=== PATIENT | female | born 2000 | race Caucasian/White ===

== ENCOUNTER 2025-06-12 15:07 | Outpatient (OUT) | payer MEDICAID, SELFPAY ==
--- OUTSIDE RECORDS SUMMARY | 2024-09-11 11:00 | XMS_ITS ---
Author Organization [facility] Address [address] [place] [address] Care Team Providers Care Nurse Manager Name Role Phone Amada Tomas Primary Care Provider Alla Jordan Unavailable [phone] REASON FOR VISIT NEW PT DENTAL EXAM Encounters Encounter Location Date Provider Diagnosis [address] [place] [address] 09/11/2024 Alla Jordan Plan Of Treatment No Information Progress Notes * RICA ARAUJO MDOB:2000 (24 yo F)Acc No.[id number]:09/11/2024 Patient: Belen GARZARICA JOHNSON Provider: Janey Jordan DDS :2000 A ge:23 Y S ex:Female Date:09/11/2024 Address:[address] [place] [address], [id number] Pcp:Amada Tomas Subjective: * Chief Complaints: * N EW PT DENTAL EXAM * Electronic signature of Rinku Jordan DDS on 06/12/2025 at 03:25 PM EDT Sign off status: Pending * Provider: Janey Jordan DDS Date: 0 09/11/2024 Generated for Jumana carrillo/Usama/eTransmitting on: 1 03:25 PM EDT
--- NOTE | 2025-06-12 15:16 | US_ITS ---
[facility] [place] [id number] Patient Name: RICA ARAUJO MRN: [id number] date: 2000 Sex: F Assigned Patient Location: Current Patient Location: Accession/Order Number: [id number] Exam Date: 06/12/2025 15:18 Report Date: 06/13/2025 00:25 At the request of: RENE DUGAN DO Procedure: US OB transvaginal US OB transvaginal 06/12/2025 3:52 PM SIGNS AND SYMPTOMS: ^Bleeding In Early , Positive Urine COMPARISON: None. TECHNIQUE: Limited pelvic ultrasound using transvesical sonography. FINDINGS: An early intrauterine is identified. The visualized yolk sac measures 0.17 cm. The visualized pole has an estimated gestational age of 6 weeks 0 days by crown-rump length which measures 0.3 cm . A heart rate is identified at 109 bpm. A normal amount of amniotic fluid is present. There is no evidence for placenta previa or subchorionic hemorrhage. Pelvic survey reveals no gross abnormalities. US/US OB transvaginal IMPRESSION: Single live IUP with an estimated gestational age of 6 weeks 0 days. Impression dictated by: Panda Oliva M.D. 06/13/2025 12:25 AM Dictation Location: [place] [address] Electronically authenticated by: [id number] Y Date: 06/13/2025 00:25
--- OUTSIDE RECORDS SUMMARY | 2025-06-12 15:25 | XMS_ITS | Encounter Summary ---
Author Organization [facility] Address [address] [place] [address] Care Team Providers Care Power Plant Operators Supervisor Name Role Phone Addison Cool MD Primary Care Provider [phone] Encounter Details Date Type Department Care Team (Late Contact Info) Description 06/03/2025 Telephone [facility] [place] [id number] Shereen Blum MA [address] [place] [address] [place] [address] Social History Tobacco Use Types Packs/Day Years Used Date Smoking Tobacco: Never Assessed Comments Unknown Sex and Gender Information Value Date Recorded Sex Assigned at Not on file Legal Sex Female 7:28 PM EDT Gender Identity Not on file Sexual Orientation Not on file documented as of this encounter Miscellaneous Notes * Telephone Encounter - Shereen Blum MA - 06/03/2025 12:15 PM EDT Pt having nausea in need of zofran. Rx sent. PVU documented in this encounter Plan of Treatment Upcoming Encounters Date Type Department Care Team (Late Contact Info) Description 07/04/2025 12:30 PM EST Ancillary Procedure [facility] [place] [id number] 07/04/2025 1:00 PM EST Initial [facility] [address] [place] [address] documented as of this encounter Visit Diagnoses Diagnosis Nausea Nausea alone documented in this encounter Care Teams Power Plant Operators Supervisor Relationship Specialty Start Date End Date Addison Cool MD PCP - General Family Medicine 06/27/24 documented as of this encounter
--- OUTSIDE RECORDS SUMMARY | 2025-06-12 15:25 | XMS_ITS | Encounter Summary ---
Author Organization [employer] [facility] [facility] tem Address [id number] [address] [place] [address] Care Team Providers Care Director Of Strategic Marketing Name Role Phone SilvinaAddison crouch Miryam BEE Primary Care Provider Encounter Details Date Type Department Care Team (Late st Contact Info) Description 04/28/2022 Orders Only [facility] [address] [place] [phone] Hien Frankel, FERNANDEZ Social History Tobacco Use Types Packs/Day Years Used Date Smoking Tobacco: Never Smokeless Tobacco: Never Alcohol Use Standard Drinks/Week Comments Not Currently 0 (1 standard drink = 0.6 oz pur e alcohol) Social Connection and Isolation Panel Answer Date Recorded In a typical week, how many times do you talk on the phone with family, friends, or neighbors? More than three times a week 04/25/2022 How often do you get togethe r with friends or relatives? More than three times a week 04/25/2022 How often do you attend chur or worship services? More than 4 times per year 04/25/2022 Do you belong to any clubs o r organizations such as mandaeism groups, unions, fraternal or athletic groups, or school groups? Yes 04/25/2022 How often do you attend meet ings of the clubs or organizations you belong to? More than 4 times per year 04/25/2022 Are you , , di vorced, , never , or living with a partner? Never 04/25/2022 AUDIT-C Answer Date Recorded Q1: How often do you have a drink containing alc ohol? Never 04/25/2022 Average Number of Drinks Not on file 022 Q3: How often do you have si x or more drinks on one occasion? Never 04/25/2022 Overall Financial Resource Strain (CARDIA) Answe r Date Recorded How hard is it for you to pa y for the very basics like food, housing, medical care, and heating? Not hard at all 04/25/2022 PHQ-2 Answer Date Recorded Total Score 0 04/25/2022 [facility] - Occupational Stress Questionnaire Answer Date Recorded Do you feel stress - tense, restless, nervous, or anxious, or unable to sleep at night because your mind is troubled all the time - these days? Not at all 04/25/2022 Exercise Vital Sign Answer Date Recorde d On average, how many days pe r week do you engage in moderate to strenuous exercise (like a brisk walk)? 0 days 04/25/2022 On average, how many minutes do you engage in exercise at this level? 0 min 04/25/2022 PRAPARE - Transportation Answer Date Re corded In the past 12 months, has l ack of transportation kept you from medical appointments or from getting medications? No 03/30 In the past 12 months, has l ack of transportation kept you from meetings, work, or from getting things needed for daily living? No 04/25/2022 Childcare Answer Date Recorded Do problems getting child ca re make it difficult for you to work or study? No 04/25/2022 Employment Answer Date Recorded Do you need help finding a [employer] career center and/or a training program? No 04/25/2022 Purpose - Life Answer Date Recorded I have a purpose and direction in my life. Stron gly Agree 04/25/2022 Comments No Sex and Gender Information Value Date Recorded Sex Assigned at Female 12/11/2021 10:50 AM EDT Legal Sex Female 1:30 PM EDT Gender Identity Female 12/11/2021 10:50 AM EDT Sexual Orientation Straight 12/11/2021 10 :50 AM EDT COVID-19 Exposure Response Date Recorded In the last month, have you been in contact with someone who was confirmed or suspected to have Coronavirus / COVID-19? No / Unsure 04/25/2022 11:07 AM EDT documented as of this encounter Plan of Treatment Not on file documented as of this encounter Visit Diagnoses Not on filedocumented in this encounter Additional Health Concerns Assessment Noted Time PHQ-9 Depression Total Score: 0 04/25/20 11:12 AM EDT documented as of this encounter Care Teams Director Of Strategic Marketing Relationship Specialty Start Date End Date Addison Cool DO PCP - General Family Medicine 11/30/21 documented as of this encounter
--- OUTSIDE RECORDS SUMMARY | 2025-06-12 15:25 | XMS_ITS | Encounter Summary ---
Author Organization [facility] Address [address] [facility] [address] Care Team Providers Care Doctor Of Podiatry Name Role Phone Addison Cool MD Primary Care Provider [phone] Encounter Details Date Type Department Care Team (Late st Contact Info) Description 05/30/2025 Abstract [facility] [place] [address] Lauren Gallego AR Social History Tobacco Use Types Packs/Day Years Used Date Smoking Tobacco: Never Assessed Comments Unknown Sex and Gender Information Value Date Recorded Sex Assigned at Not on file Legal Sex Female 7:28 PM EDT Gender Identity Not on file Sexual Orientation Not on file documented as of this encounter Plan of Treatment Upcoming Encounters Date Type Department Care Team (Late Contact Info) Description 07/04/2025 12:30 PM EST [place] [address] 07/04/2025 1:00 PM EST Initial [facility] [place] [address] documented as of this encounter Visit Diagnoses Not on filedocumented in this encounter Care Teams Doctor Of Podiatry Relationship Specialty Start Date End Date Addison Cool MD PCP - General Family Medicine 06/27/24 documented as of this encounter
--- OUTSIDE RECORDS SUMMARY | 2025-06-12 15:25 | XMS_ITS | Encounter Summary ---
Author Organization [facility] Address [address] [place] [address] Care Team Providers Care Business Continuity Analyst Name Role Phone Addison Cool MD Primary Care Provider [phone] Encounter Details Date Type Department Care Team (Late Contact Info) Description 05/29/2025 Telephone [facility] [place] [address] Lauren Gallego MA Social History Tobacco Use Types Packs/Day Years Used Date Smoking Tobacco: Never Assessed Comments Unknown Sex and Gender Information Value Date Recorded Sex Assigned at Not on file Legal Sex Female 7:28 PM EDT Gender Identity Not on file Sexual Orientation Not on file documented as of this encounter Miscellaneous Notes * Telephone Encounter - Lauren Gallego MA - 05/29/2025 11:34 AM EDT Pt called in recent positive test but wanting hCG to confirm due to some bleeding she's been having. Orders faxed to [facility] per pt request. Advised pt about bleeding precautions and when to head to ER. PVU. documented in this encounter Plan of Treatment Upcoming Encounters Date Type Department Care Team (Late Contact Info) Description 07/04/2025 12:30 PM EST Ancillary Procedure [facility]d [facility] [address] [place] [phone] 07/04/2025 1:00 PM EST Initial [facility] [address] [place] [address] Scheduled Orders Name Type Priority Associated Diagnoses Orde r Schedule hCG, quantitative, Lab Routine Positive urine test ([facility]) 2 Occurrences starting 05/29/2025 until 05/29/2026 documented as of this encounter Visit Diagnoses Diagnosis Positive urine test ([facility]) documented in this encounter Care Teams Business Continuity Analyst Relationship Specialty Start Date End Date Addison Cool MD PCP - General Family Medicine 06/27/24 documented as of this encounter
--- OUTSIDE RECORDS SUMMARY | 2025-06-12 15:25 | XMS_ITS | Encounter Summary ---
Author Organization [facility] Address [address] [place] [address] Care Team Providers Care Operations Planner Name Role Phone Addison Cool MD Primary Care Provider [phone] Encounter Details Date Type Department Care Team (Late Contact Info) Description 08/09/2024 Abstract [facility] [address] [facility] [place] [phone] Aleyda Funk MD Social History Tobacco Use Types Packs/Day Years Used Date Smoking Tobacco: Never Assessed Comments Unknown Sex and Gender Information Value Date Recorded Sex Assigned at Not on file Legal Sex Female 7:28 PM EDT Gender Identity Not on file Sexual Orientation Not on file documented as of this encounter Plan of Treatment Upcoming Encounters Date Type Department Care Team ([facility] Contact Info) Description 07/04/2025 12:30 PM EST Ancillary Procedure PATRICIA [facility] [address] [address] 07/04/2025 1:00 PM EST Initial PATRICIA R[facility] [address] [address] documented as of this encounter Visit Diagnoses Not on filedocumented in this encounter Care Teams Operations Planner Relationship Specialty Start Date End Date Addison Cool MD PCP - General Family Medicine 06/27/24 documented as of this encounter
--- OUTSIDE RECORDS SUMMARY | 2025-06-12 15:26 | XMS_ITS | Encounter Summary ---
Author Organization [facility] Address [address] [place] [address] Phone Care Team Providers Care Visiting Teacher Name Role Phone Addison Cool DO Primary Care Provider [phone] Encounter Details Date Type Department Care Team (Late st Contact Info) Description 03/31/2023 Patient Risk Score [facility] [place] Management [address] [place] [address] Social History Tobacco Use Types Packs/Day Years Used Date Smoking Tobacco: Never Assessed Comments Unknown Sex and Gender Information Value Date Recorded Sex Assigned at Not on file Legal Sex Female 5:59 PM EST Gender Identity Not on file Sexual Orientation Not on file documented as of this encounter Plan of Treatment Not on file documented as of this encounter Visit Diagnoses Not on filedocumented in this encounter Care Teams Visiting Teacher Relationship Specialty Start Date End Date Addison Cool DO [address] [place] [address] PCP - General 03/19/21 documented as of this encounter
--- OUTSIDE RECORDS SUMMARY | 2025-06-12 15:26 | XMS_ITS | Clinical Summary ---
Author Organization [facility] Address [address] [place] [address] Care Team Providers Care Jig Grinder Set Up Operator Name Role Phone Addison Cool MD Primary Care Provider [phone] Medications ondansetron ODT (Zofran-ODT) 4 MG disintegrating tabletIndications:N yolanda Take 1 tablet (4 mg) by mouth every 6 (six) hours if needed for nausea or vomiting 30 tablet 2 5 07/03/20 25 Active promethazine (Phenergan) 12.5 MG tabletIndications:Sylvia guerrero,Bleeding in early ([facility]) Take 1 tablet (12.5 mg) by mouth every 6 (six) hours if needed for nausea or vomiting for up to 30 doses Take 1 tablet by mouth every 6 hours as needed for nausea. 30 tablet 2 5 Active Encounters Date Type Department Care Team Description 06/10/2025 Telephone [facility] [address] [place] [address] oG Guan DO 06/03/2025 Telephone [facility] [address] [place] [address] Shereen Blum MA 05/30/2025 Abstract [facility] [address] [place] [address] Lauren Gallego MA 05/29/2025 [place] [address] Lauren Gallego MA from Last 3 Months Social History Tobacco Use Types Packs/Day Years Used Date Smoking Tobacco: Never Assessed Comments Unknown Sex and Gender Information Value Date Recorded Sex Assigned at Not on file Legal Sex Female 7:28 PM EDT Gender Identity Not on file Sexual Orientation Not on file Last Filed Vital Signs Vital Sign Reading Time Taken Comments Blood Pressure 130/90 10/12/2021 12:00 PM EST Pulse - - Temperature - - Respiratory Rate - - Oxygen Saturation - - Inhaled Oxygen Concentration - - Weight 108 kg (238 lb) 10/12/2021 12:00 PM EST Height 171.5 cm (5' 7.5 ) 10/12/2021 12:00 PM ES T Body Mass Index 36.73 10/12/2021 12:00 PM EST Plan of Treatment Upcoming Encounters Date Type Department Care Team (Late st Contact Info) Description 07/04/2025 12:30 PM EST [place]illary [place] [address] 07/04/2025 1:00 PM EST [place] [address] Health Maintenance Due Date Last Done Comments Influenza Vaccine (#1) 2025 0, 11/14/2019, 10/11/2018, Additional history exists Insurance [employer] [place] Care Teams Jig Grinder Set Up Operator Relationship Specialty Start Date End Date Addison Cool MD PCP - General Family Medicine 06/27/24
--- OUTSIDE RECORDS SUMMARY | 2025-06-12 15:26 | XMS_ITS | Encounter Summary ---
Author Organization [facility] Address [address] [place] [address] Care Team Providers Care Split Leather Mosser Name Role Phone Addison Cool MD Primary Care Provider [phone] Encounter Details Date Type Department Care Team (Late st Contact Info) Description 06/10/2025 Telephone [facility] [address] [place] [address] Go Guan DO [address] [place] [address] Social History Tobacco Use Types Packs/Day Years Used Date Smoking Tobacco: Never Assessed Comments Unknown Sex and Gender Information Value Date Recorded Sex Assigned at Not on file Legal Sex Female 7:28 PM EDT Gender Identity Not on file Sexual Orientation Not on file documented as of this encounter Miscellaneous Notes * Telephone Encounter - Ayana Martinez LPN - 06/11/2025 3:50 PM EDT Isamar [place] [facility] returned call at 3:44 and states that radiologist need the order to state first trimester ultrasound transvaginal if indicated. Returned call spoke with a different Ultrasound person and she was advised this order was being cancelled as patient decided to have done at [place] as we did not hear back from [facility]. * Addendum Note - Ayana Martinez LPN - 06/11/2025 9:22 AM EDTAddended by: AYANA MARTINEZ on: 06/11/2025 09:22 AM Modules accepted: Orders * Telephone Encounter - Ayana Martinez LPN - 06/11/2025 9:19 AM EDT Patient was called made aware we have reached out to [facility] and left a message to see what clarification they need. Patient states that she can go to [facility] if needed. Patient was advised orders sent to [facility] along with labs and she can reach out to [phone] to contact to schedule and pre-register. PVU and orders sent. * Addendum Note - Ayana Martinez LPN - 06/11/2025 8:17 AM EDTAddended by: AYANA MARTINEZ on: 06/11/2025 08:17 AM Modules accepted: Orders * Telephone Encounter - Ayana Martinez LPN - 06/11/2025 8:10 AM EDT Received notification that [facility] [place] needed a corrected ultrasound sent to them on patient. Left a voicemail for Ultrasound to call back to clarify what order they are needing to be sent over. * Telephone Encounter - Ayana Martinez LPN - 06/10/2025 1:11 PM EDT Patient returned call and she was advised with the ultrasound may be to early to see anything and may have to have repeated again but will send this and labs for her with the spotting and cramping she is having at this time. PVU order sent to [facility]. * Telephone Encounter - Ayana Martinez LPN - 06/10/2025 1:00 PM EDT I have an appointment, I think july [address] costello with a nurse, I have been having very bad cramping and it seems to be getting worse. It does not seem to be letting up. So I am also having somespotting. I had this spotting since I first found out that I was , but the cramping is definitely increased in the nausea. While I know that the nausea is a normal thing and I have been trying the zofran and but it does not seem to help and I have been thing up almost around the clock. I was not sure if it was possible for me to get In any sooner or was there was anything that we should be doing or should we check to make sure everything's going okay? I do go out of town with my family in the next week. So I was hoping that I could maybe either be seen or at least to call back or talkabout the situation would Be would be best just I could have some peace in mind with this. If you could give me a call back. My phone number is [phone]. Patient call was returned and she was advised that we can send in the Phenergan for her to see if this helps she can try OTC Unisom and Vitamin B6. Patient also made aware we will send labs and Ultrasound to [facility] and that she can call the office back to see if they have anything prior to that appointment. Any further questions return call to the office. documented in this encounter Plan of Treatment Upcoming Encounters Date Type Department Care Team (Late st Contact Info) Description 07/04/2025 12:30 PM EST Ancillary Procedure [facility] [address] [place] [address] 07/04/2025 1:00 PM EST [place] [address] Scheduled Orders Name Type Priority Associated Diagnoses Orde r Schedule hCG, quantitative, Lab Routine Positive urine test ([facility]) 6 Occurrences starting 06/10/2025 until 06/10/2026 US OB transvaginal Imaging Routine Bleeding in early ([facility]) Positive urine test ([facility]) Missed menses Expected: 06/11/2025, Expires: 09/11/2025 documented as of this encounter Visit Diagnoses Diagnosis Nausea Nausea alone Bleeding in early ([facility]) Unspecified hemorrhage in early , unspecified as to episode of care Positive urine test ([facility]) Missed menses documented in this encounter Care Teams Split Leather Mosser Relationship Specialty Start Date End Date Addison Cool MD PCP - General Family Medicine 06/27/24 documented as of this encounter
--- OUTSIDE RECORDS SUMMARY | 2025-06-12 15:26 | XMS_ITS | Encounter Summary ---
Author Organization [facility] Address [address] [place] [address] Phone Care Team Providers Care Electro Tech Name Role Phone Addison Cool DO Primary Care Provider [phone] Encounter Details Date Type Department Care Team (Late st Contact Info) Description 02/28/2023 Patient Risk Score [facility] Care Management [address] [place] [address] Social History Tobacco Use Types [...] on filedocumented in this encounter Care Teams Electro Tech Relationship Specialty Start Date End Date Addison Cool DO [address] [place] [id number] PCP - General 03/19/21 documented as of this encounter
--- OUTSIDE RECORDS SUMMARY | 2025-06-12 15:26 | XMS_ITS | Encounter Summary ---
Author Organization [facility] tem Address [id number] [address] [place] [address] Care Team Providers Care Oil And Gas Exploration Technician Name Role Phone Addison Cool Miryam BEE Primary Care Provider [phone] Encounter Details Date Type Department Care Team (Late st Contact Info) Description 02/24/2022 Orders Only Maternal- Medicine at [facility] [address] [place] [phone] Iman Doshi, FERNANDEZ Social History Tobacco Use Types Packs/Day Years Used Date Smoking Tobacco: Never Cigarettes Smokeless Tobacco: Never Alcohol Use Standard Drinks/Week Comments Not Currently 0 (1 standard drink = 0.6 oz pur e alcohol) Overall Financial Resource Strain (CARDIA) Answe r Date Recorded How hard is it for you to pa y for the very basics like food, housing, medical care, and heating? Not very hard 02/22/2022 PHQ-2 Answer Date Recorded Total Score 2 02/22/2022 Childcare Answer Date Recorded Do problems getting child ca re make it difficult for you to work or study? No 02/22/2022 Comments Yes Sex and Gender Information Value Date Recorded [...] have Coronavirus / COVID-19? No / Unsure 02/24/2022 10:40 AM EDT documented as of this encounter Plan of Treatment Not on file documented as of this encounter Visit Diagnoses Not on filedocumented in this encounter Additional Health Concerns Assessment Noted Time PHQ-9 Depression Total Score: 2 02/23/20 22 12:08 PM EDT documented as of this encounter Care Teams Oil And Gas Exploration Technician Relationship Specialty Start Date End Date Addison Cool DO PCP - General Family Medicine 11/30/21 documented as of this encounter
--- OUTSIDE RECORDS SUMMARY | 2025-06-12 15:26 | XMS_ITS | Encounter Summary ---
Author Organization [facility] tem Address [id number] [address] [place] [address] Care Team Providers Care Hydrotechnical Specialist Name Role Phone Addison Cool DO Primary Care Provider [phone] Encounter Details Date Type Department Care Team (Late st Contact Info) Description 12/21/2021 Orders Only Maternal- Medicine at [facility] [address] [place] [address] Devon Rojas MD Social History Tobacco Use Types Packs/Day Years Used Date Smoking Tobacco: Never Cigarettes Smokeless Tobacco: Never Alcohol Use Standard Drinks/Week Comments Not Currently 0 (1 standard drink = 0.6 oz pur e alcohol) Comments Yes Sex and Gender Information Value Date Recorded Sex Assigned at Female 12/11/2021 10:50 AM EDT Legal Sex Female 1:30 PM EDT Gender Identity Female 12/11/2021 10:50 AM EDT Sexual Orientation Straight 12/11/2021 10 :50 AM EDT COVID-19 Exposure Response Date Recorded In the last 10 days, have yo u been in contact with someone who was confirmed or suspected to have Coronavirus/COVID-19? No / Unsure 12/10/2021 1:55 PM EDT documented as of this encounter Plan of Treatment Not on file documented as of this encounter Visit Diagnoses Not on filedocumented in this encounter Care Teams Hydrotechnical Specialist Relationship Specialty Start Date End Date Addison Cool DO PCP - General Family Medicine 11/30/21 documented as of this encounter
--- OUTSIDE RECORDS SUMMARY | 2025-06-12 15:26 | XMS_ITS | Clinical Summary ---
Author Organization [facility] Address [address] [place] [address] Phone Care Team Providers Care Cloth Brushing And Sueding Supervisor Name Role Phone Silvina, Addison Abel BEE Primary Care Provider [phone] Social History Tobacco Use Types Packs/Day Years Used Date Smoking Tobacco: Never Assessed Comments Unknown Sex and Gender Information Value Date Recorded Sex Assigned at Not on file Legal Sex Female 5:59 PM EST Gender Identity Not on file Sexual Orientation Not on file Last Filed Vital Signs Vital Sign Reading Time Taken Comments Blood Pressure 124/80 06/29/2021 2:07 PM EDT Pulse 87 06/29/2021 2:07 PM EDT Temperature 37.2 C (99 F) 06/29/2021 2:07 PM EDT Respiratory Rate 16 04/07/2021 12:16 PM EDT Oxygen Saturation 97% 06/29/2021 2:07 PM EDT Inhaled Oxygen Concentration - - Weight 106 kg (234 lb) 06/29/2021 2:07 PM EDT Height 172.7 cm (5' 8 ) 06/29/2021 2:07 PM EDT Body Mass Index 35.58 06/29/2021 2:07 PM EDT Plan of Treatment Health Maintenance Due Date Last Done Comments HIV Screening 1998 Lipid Panel 1998 MMR Vaccines (1 of 1 - Standard series) 1999 HPV Vaccines (1 - 3-dose series) 2013 Hepatitis B Vaccines (1 of 3 - 19+ 3-dose series) 2017 HPV/Cotest 2019 Yearly Adult Physical 12/24/2022 12/23/2021 , 05/26/2020, 06/27/2019 Cervical Cancer Screening 12/23/2024 Pap Smear 12/23/2024 12/23/2021, 05/26/2020 Influenza Vaccine (#1) 2025 COVID-19 Vaccine (1 - 2024-2 6 season) 2025 DTaP/Tdap/Td Vaccines (2 - T d or Tdap) 02/25/2032 02/24/2022 Zoster Vaccines (1 of 2) 2048 Hepatitis C Screening Completed 06/29/2021 HIB Vaccines Aged Out No longer eligi ble based on patient's age to complete this topic Hepatitis A Vaccines Aged Out No long er eligible based on patient's age to complete this topic IPV Vaccines Aged Out No longer eligi ble based on patient's age to complete this topic Meningococcal Vaccine Aged Out No alfred kiarra eligible based on patient's age to complete this topic Pneumococcal Vaccine: Pediatrics and At-Risk Adult Patients Aged Out No longer eligible b ased on patient's age to complete this topic Rotavirus Vaccines Aged Out No longer eligible based on patient's age to complete this topic Medical Devices Implanted Type Area Framing Mill Operator Device Identifier Shelf Expiration Date Model / Serial / Lot Generic Supply Case [id number] Implanted:Qty: 1 on 04/07/2021 by Charisma Ahmadi DO Implant [facility] [id number] / / Description:Converted from [facility]. Please see archived information for full log information. Additional Information:TISSEEL SPRAY SET (ALSO LISTED ON PACKAGING ARE 10 PACK [id number]/SINGLE PACK [id number]) Tisseel Fibrin Sealant, Prima, Frozen, 10ml Case [id number] Implanted:Qty: 1 on 04/07/2021 by Charisma Ahmadi DO Surgical Instrument [facility] 05/28/2022 [id number] / / [id number] Description:Converted from [facility]. Please see archived information for full log information. Hemostat, Per, Absorbable, 3 Grams Case [id number] Implanted:Qty: 1 on 04/07/2021 by Charisma Ahmadi DO Surgical Instrument [facility] [id number] / / Description:Converted from [facility]. Please see archived information for full log information. Procedures Procedure Name Priority Date/Time Associated Diagnosis Comments HEPATITIS PANEL, ACUTE Routine 06/29/2021 3:17 PM EDT from Last 3 Months or Most Recently Relevant to Health Maintenance Results * Hepatitis Panel, Acute (06/29/2021 3:17 PM EDT) Hep A IgM NONREACTIVE NONREACTIVE [facility] Comment: Biotin interference may cause falsely decreased results. Patients taking a Biotin dose of up to 5 mg/day should refrain from taking Biotin for 24 hours before sample collection. Providers may contact their local laboratory for further information. Hep B Core IgM NONREACTIVE NONREACTIVE [facility] Comment: Results from patients taking biotin supplements or receiving high-dose biotin therapy should be interpreted with caution due to possible interference with this test. Providers may contact their local laboratory for further information. Hepatitis B Surface Ag NONREACTIVE NONREACTIVE [facility] Comment: Biotin interference may cause falsely decreased results. Patients taking a Biotin dose of up to 5 mg/day should refrain from taking Biotin for 24 hours before sample collection. Providers may contact their local laboratory for further information. Hepatitis C Ab NONREACTIVE NONREACTIVE [facility] Comment: Results from patients taking biotin supplements or receiving high-dose biotin therapy should be interpreted with caution due to possible interference with this test. Providers may contact their local laboratory for further information. 06/29/2021 3:17 PM EDT 06/29/2021 9:54 PM EDT us Latonialia Cox DO LAB BLOOD ORDERABLES Final Resu lt [facility] from Last 3 Months or Most Recently Relevant to Health Maintenance Care Teams Cloth Brushing And Sueding Supervisor Relationship Specialty Start Date End Date Addison Cool DO [address] [place] [id number] PCP - General 03/19/21
--- OUTSIDE RECORDS SUMMARY | 2025-06-12 15:26 | XMS_ITS | Patient Health Record ---
Author Organization [facility] Address [address] [facility] [place] [address] Care Team Providers Care Relief Master Name Role Phone Amada Tomas Primary Care Provider Alla Jordan Unavailable [phone] Allergies Allergen (clinical drug ingredient) Drug/Non Drug Allergy documented on EMR Reaction Allergy Type Onset Date Status aripiprazole Aripiprazole severe fatigue Drug Allergy Active atomoxetine Atomoxetine stomach upset Drug Allergy Active Reason For Referral No Information Medications Medication SIG (Take, Route, Frequency, Duration) Notes Start Date End Date Status SEROquel XR 50 MG Tablet Extended Release 24 Hour 1 tablet in the evening Orally Once a day Active Albuterol Sulfate HFA 108 (90 Base) MCG/ACT Aerosol Solution 1 puff as needed Inhalation every 4 hrs Active Mavis 28 3-0.03 MG Tablet 1 tablet Oral ly Once a day; Duration: 30 days Active Lexapro 20 MG Tablet 1 tablet Orally Once a day Active Melatonin 10 MG Tablet as directed Orally Active Topamax 100 MG Tablet 1 tablet Orally tw ice a day (bid) Active Immunizations Vaccine Route Administration Date Status Comme nts DTap - Infanrix Unknown 04/14/2004 Administered HepA - Havrix (ped/adol 2 dose) Unknown 07/21/2011 Admi nistered HepA - Havrix (ped/adol 2 dose) Unknown 05/23/2012 Admi nistered HepB - Engerix (Peds/Adol) Unknown 1998 Administe red HepB - Engerix (Peds/Adol) Unknown 01/28/1999 Administe red HepB - Engerix (Peds/Adol) Unknown 07/01/1999 Administe red HIB SDV Unknown 09/30/2000 Administered HPV - Gardasil 9 Unknown 04/08/2011 Administered HPV - Gardasil 9 Unknown 07/21/2011 Administered HPV - Gardasil 9 Unknown 05/23/2012 Administered Meningococcal (MENACTRA) Unknown 04/08/2011 Administere d Meningococcal (MENACTRA) Unknown 03/27/2016 Administere d MMR Unknown 10/26/2000 Administered MMR Unknown 04/14/2004 Administered PFIZER Unknown 03/27/2021 Administered PFIZER Unknown 04/14/2021 Administered Polio, IPV Unknown 01/28/1999 Administered TDAP Unknown 04/08/2011 Administered Varicella (VARIVAX) Unknown 10/26/2000 Administered xxxxIPV; MDV10 Unknown 07/01/1999 Administered xxxxIPV; MDV10 Unknown 10/26/2000 Administered xxxxIPV; MDV10 Unknown 04/14/2004 Administered Social History Tobacco Use: Social History Observation Description Date Details (start date - stop date) Never Smoker NA - NA Social History General Social Info Question Answer Notes Transition of Care: ER/UC/hospital since last office v isit? No Specialist seen since last office visit? Yes, re port requested Dr. Manasa Amin Substance abuse/mental healt h issues of patient/family Patient - Denies Ability to understand healthcare/treatment Patient: Good Tobacco Screen: Are you a: never smoker Sexual Hx: Had sex in the last 12 months (vaginal, oral, or anal)? Yes with Men only Use protection? Yes How often? All of the time Prevention Strategies discussed: Condoms Have you ever had an STD? No LMP: 07/17/2021 Social/Support Concerns: Patient: No Alcohol Screening: Did you have a drink containing alcohol in the past year? Yes How often did you have a drink containing alcohol in the past year? Two to four times a month (2 points) How many drinks did you have on a typical day when you were drinking in the past year? 1 or 2 (0 points) How often did you have six or more drinks on one occasion in the past year? Never (0 points) Points 2 Interpretation Negative Behaviors affecting health Poor/Risky Behaviors: Fady cardoso- Communication Barrier: Language Barrier?: No Problems Problem Type SNOMED Code ICD Code Onset Dates Problem Status W/U Status Risk Notes Problem Mood disorder (49065199) Mood disorder (F39) Active confirmed Plan Of Treatment No Information Insurance Providers Payer Name Payer Address Payer Phone Subscriber Number Group Number Insured Name Patient Relationship to Insured Coverage Start Date Coverage End Date [facility] [employer] [facility] [address] [address] [place] [address] [id number] RICA ARAUJO Self - patient is the insured 1 [employer] [address] [address] [place] [address] [id number] RICA ARAUJO Self - patient is the insured 1 Medical (General) History Medical History History ICD Code Migraine without aura, not intractable, without status migrainosus G43.009 Migraine without aura, intractable, with status migrainosus G43.011 Attention Deficit Hyperactiv ity Disorder (ADHD), 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
--- OUTSIDE RECORDS SUMMARY | 2025-06-12 15:26 | XMS_ITS | Clinical Summary ---
Author Organization [employer] tem Address [id number] [address] [place] [address] Care Team Providers Care Territory Manager Name Role Phone Silvina Addison Miryam BEE Primary Care Provider Allergies Active Allergy Reactions Criticality Noted Date Comments Atomoxetine Swelling 11/26/2021 SWOLLEN EYES Medications PNV [id number] 1-DSS-DHA ORAL Take by mouth. Active QUEtiapine (SEROquel) 50 mg tablet Take 50 mg by mouth nightly. Active escitalopram (LEXAPRO) 20 mg tablet Take 20 mg by mouth in the morning. Active melatonin 10 mg tablet Take 10 mg by mouth. Active magnesium oxide (MAGOX) 400 mg tablet Take 1 tablet (400 mg total) by mouth in the morning. 60 tablet 2 04/09/20 Active Additional Information Patient not taking.Reported on 05/26/2022 blood pressure monitor kitIndications:Pre care, antepartum 1 kit by miscellaneous route in the morning and at bedtime. 1 each 04/14/20 Active docusate sodium (COLACE) 100 mg capsule Take 1 capsule (100 mg total) by mouth in the morning and 1 capsule (100 mg total) before bedtime. 10 capsule 04/28/20 Active Additional Information Patient not taking.Reported on 05/26/2022 ibuprofen (MOTRIN) 800 mg tablet Take 1 tablet (800 mg total) by mouth every 8 (eight) hours as needed (cramping). 30 tablet 04/28/20 Active Additional Information Patient not taking.Reported on 05/26/2022 drospirenone-ethin yl estradioL (DAREK,OCELLA) 3-0.03 mg per tabletIndications: Initiation of OCP (BCP) Take 1 tablet by mouth in the morning. 28 tablet 11 05/26/20 Active ondansetron ODT (ZOFRAN ODT) 4 mg disintegrating tablet Dissolve 1 tablet (4 mg total) on tongue every 8 (eight) hours as needed for nausea for up to 10 doses. 10 tablet 09/27/19 23 Active Active Problems Problem Noted Date Diagnosed Date History of gestational hypertension 05/26/2022 History of diet controlled g estational diabetes mellitus (GDM) 05/26/2022 Visual aura 04/08/2022 Migraine with aura 04/08/2022 Overview (04/19/2022): Admitted on 04/07/22-04/08/22 for visual loss Evaluation negative for cause other than aura. Vision loss 04/07/2022 Resolved Problems Problem Noted Date Diagnosed Date Resolved Date Gestational hypertension, third trimester 05/11/2022 05/26/2022 Overview (05/11/2022): Patient to start taking BP at home and keeping log 05/11 premature rupture of membranes (PPROM) with unknown onset of labor 04/25/202204/29 Polyhydramnios in third trimester 04/19/2022 05/11/2022 Overview (04/19/2022): 04/19/22 care, antepartum 03/10/2022 Overview (04/19/2022): Transfer from [facility] at 28 weeks gestation Dated by LMP consistent with 8 week US TDaP given 02/24/22 S/p COVID vaccine 28 week labs normal 02/24/22 MFM US 28w0d EFW 32% AC 30% DVP 6.1 03/24/22 MFM US 32w0d EFW 18% AC 28% DVP 6.52 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 Manasa [facility] at [facility]. 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 04/19/2022 Insulin controlled gestation al diabetes mellitus (GDM) in second trimester 12/14/202105/26 Immunizations Immunization Administration Dates Next Due DTaP 04/14/2004 DTaP, Unspecified 08/30/2001,10/26/2000,07/01/19 99,01/28/1999 HPV Quadrivalent 05/23/2012,07/21/2011, 1 Hep A, 2 Dose 05/23/2012,07/21/2011 Hep B, Adolescent or Pediatric 07/01/1999,1998,1998 HiB 08/30/2001,01/28/1999 Hib (PRP-OMP) 10/26/2000,07/01/1999 Hib (PRP-T) 09/30/2000 IPV 04/14/2004,10/26/2000,07/01/1999 ,01/28/1999 MMR 04/14/2004,10/26/2000 Meningococcal MCV4P 04/27/2016,03/27/2016,2010 Tdap 02/24/2022,04/08/2011 Typhoid, ViCPS 01/21/2017 Varicella 10/26/2000 Family History Medical History Relation Name Comments Cancer Maternal Grandfather Arthritis Maternal Grandmother Bailee Parker Cancer Maternal Uncle Diabetes Mother Jose Manuel Araujo Hypertension Mother Jose Manuel Araujo Alcohol abuse Paternal Grandmother Samuel Freemancyndy Cancer Paternal Grandmother Samuel Freemancyndy Lung cancer Paternal Grandmother Samuel Freemancydny Stroke Paternal Grandmother Samuel Freemancyndy Relation Name Status Comments Maternal Grandfather Maternal Grandmother Bailee Parker Maternal Uncle Alive Mother Jose Manuel Araujo Paternal Grandmother Samuel Araujo Social History Tobacco Use Types Packs/Day Years [...] 04/25/2022 How often do you attend chur ch or hindu services? More than 4 times per year 04/25/2022 Do you belong to any clubs o r organizations such as hoahaoism groups, unions, fraternal or athletic groups, or [...] Date Recorded Total Score 0 04/25/2022 [facility] - Occupational Stress [...] things needed for daily living? No 04/25/2022 [place] Depression Scale Answer Date Recorded [place] Depression Scale Total 2 05/26/2022 The thought of harming myself has occurred to me . Never 05/26/2022 Childcare Answer Date Recorded Do problems getting child ca re make it difficult for you to work or study? No 04/25/2022 Employment Answer Date Recorded Do you need help finding a [facility] career center and/or a training program? No 04/25/2022 Hunger Screening Answer Date Recorded Within the past 12 months we worried whether our food would run out before we got money to buy more. Never True 09/26/2022 Within the past 12 months th e food we bought just didn't last and we didn't have money to get more. Never True 09/26/2022 Purpose - Life Answer Date Recorded I have a purpose and direction in my life. Stron gly Agree 04/25/2022 Comments No Sex and Gender Information Value Date Recorded Sex Assigned at Female 12/11/2021 10:50 AM EDT Legal Sex Female 1:30 PM EDT Gender Identity Female 12/11/2021 10:50 AM EDT Sexual Orientation Straight 12/11/2021 10 :50 AM EDT Last Filed Vital Signs Vital Sign Reading Time Taken Comments Blood Pressure 132/86 09/27/2022 1:56 AM EST Pulse 80 09/27/2022 1:56 AM EST Temperature 36.2 C (97.2 F) 05/26/2022 2:23 PM EDT Respiratory Rate 16 09/27/2022 1:56 AM EST Oxygen Saturation 97% 09/27/2022 1:56 AM EST Inhaled Oxygen Concentration - - Weight 97.4 kg (214 lb 11.2 oz) 05/26/2022 2:23 PM EDT Height 172.7 cm (5' 8 ) 05/26/2022 2:23 PM EDT Body Mass Index 32.65 05/26/2022 2:23 PM EDT Plan of Treatment Health Maintenance Due Date Last Done Comments Tobacco Screening 2010 Adult BMI Screening 2016 Pap Smear 2019 Depression Screening 05/26/2023 05/26/2022 COVID-19 Vaccine (2024-2 6 season) 2025 04/14/2021, 03/27/2021 Influenza Vaccine 04/29/2025 DTaP,Tdap and Td Vaccines (8 - Td or Tdap) 02/25/2032 02/24/2022, 04/08/2011, 04/14/2004, Additional history exists Medical Devices Not on file Insurance [facility] MEDICAID [place] Advance Directives * Full Code (Latest Code Status on File) Date Activated Date Inactivated Comments 04/25/2022 11:23 AM 04/28/2022 8:38 PM * Full Code Date Activated Date Inactivated Comments 04/07/2022 8:34 PM 04/08/2022 4:20 PM Care Teams Territory Manager Relationship Specialty Start Date End Date Addison Cool DO PCP - General Family Medicine 11/30/21
--- OUTSIDE RECORDS SUMMARY | 2025-06-12 15:26 | XMS_ITS | Encounter Summary ---
Author Organization [facility] Address [address] [place] [address] Phone Care Team Providers Care Entertainment Lawyer Name Role Phone Addison Cool DO Primary Care Provider [phone] Encounter Details Date Type Department Care Team (Late st Contact Info) Description 05/01/2023 Patient Risk Score [facility] Care Management [address] [place] [address] Social History Tobacco Use Types [...] on filedocumented in this encounter Care Teams Entertainment Lawyer Relationship Specialty Start Date End Date Addison Cool DO [address] [place] [id number] PCP - General 03/19/21 documented as of this encounter
== END 2025-06-12 15:08 | disposition home or self-care (01) ==
LOC: US 15:12
PROVIDERS: PCP Family Medicine; Visit Provider Obstetrics & Gynecology
DX: Z32.01 Encounter for pregnancy test, result positive (principal); O20.9 Hemorrhage in early pregnancy, unspecified; N92.6 Irregular menstruation, unspecified; Z3A.01 Less than 8 weeks gestation of pregnancy
CPT/HCPCS: 36415; 76817; 84702

== ENCOUNTER 2025-07-04 14:14 | Outpatient (OUT) | payer MEDICAID, SELFPAY ==
--- OUTSIDE RECORDS SUMMARY | 2025-07-04 14:19 | XMS_ITS | Clinical Summary ---
Author Organization [facility] Address [address] [place], [place] [id number] Care Team Providers Care [place] Tier Name Role Phone Addison Cool DO Primary Care Provider [phone] Addison Cool DO Unavailable [phone] Allergies Active AllergyReactionsCriticalityNoted DateCommentsAtomoxetineIntolerance 10/29/2021 Medications MedicationSigDispense QuantityRefillsLast FilledStart DateEnd DateStatus albuterol HFA (PROVENTIL HFA) 90 mcg/actuation inhaler Inhale as instructed.05/28/2020Active escitalopram oxalate (LEXAPRO) 20 mg tablet Take 20 mg by mouth once daily.11/01/2021ctive ondansetron orally disintegrating (ZOFRAN ODT) 4 mg disintegrating tablet DISSOLVE 1 (ONE) TABLET on the tongue EVERY 6 HOURS NEEDED FOR NAUSEA 10/15/2021ctive QUEtiapine XR (SEROQUEL XR) 50 mg Tb24 TAKE 1 TABLET BY MOUTH EVERY MORNING AT NIGHT09/29/2021ctive pantoprazole DR (PROTONIX) 40 mg tablet Take by mouth.07/17/2024ctive triamcinolone acetonide (KENALOG) 0.1 % cream Apply to affected area two times a day. TO AFFECTED AREA. 80 g tive Active Problems ProblemNoted DateDiagnosed DateRecurrent /13/2025 Jdjhvgcsfzxirimirkndv78/13/2025Intrinsic atopic lguiqfzhwo57/13/2025 Immunizations ImmunizationAdministration DatesNext DueHaemophilus influenzae b (Hib PRP-OMP) vaccine, 3-dose series (PEDVAX HIB)10/26/2000,07/01/1999Haemophilus influenzae b (Hib PRP-T) vaccine, 4-dose series (ACTHIB, HIBERIX)09/30/2000Haemophilus influenzae b (Hib) vaccine, unspecified kkpdnrwmdcy65/02/2002,08/30/2001, 01/28/1999,01/28/1999diphtheria tetanus pertussis (DTaP) vaccine, pediatric (INFANRIX)04/14/2004diphtheria tetanus pertussis (DTaP) vaccine, unspecified eatuheviopn02/02/2002,08/30/2001,10/26/2000,10/26/2000,07/01/1999,07/01/1999, 01/28/1999,01/28/1999hepatitis A (HepA) vaccine, 2-dose series, ped/adol (HAVRIX-PEDS, VAQTA-PEDS)05/23/2012,07/21/2011hepatitis B (HepB) vaccine, 3-dose series, age 0 yr - 19 yr (ENGERIX B-PEDS, RECOMBIVAX HB-PEDS)07/01/1999, 01/28/1999,1998human papillomavirus (HPV4) vaccine, quadrivalent (GARDASIL)05/23/2012,07/21/2011,04/08/2011influenza (IIV4) vaccine, quadrivalent (AFLURIA, FLULAVAL, FLUZONE)03/04/2020,11/14/2019,10/11/2018,06/26/2018, 07/15/2017,05/30/2017measles mumps rubella (MMR) vaccine (M-M-R II, PRIORIX) 04/14/2004,10/26/2000meningococcal (MenACWY-D) vaccine, quadrivalent (MENACTRA) 04/27/2016,03/27/2016,04/08/2011poliovirus (IPV) vaccine, inactivated (IPOL) 04/14/2004,10/26/2000,07/01/1999,01/28/1999tetanus diphtheria pertussis (Tdap) vaccine, age 7+ yr (ADACEL, BOOSTRIX)02/24/2022,04/08/2011typhoid (ViCPS) vaccine, inactivated (TYPHIM )01/21/2017varicella (TORI) vaccine (VARIVAX) 10/26/2000 Family History Medical HistoryRelationCommentsGlaucomaMaternal GrandmotherDiabetesMother HypertensionMotherAmblyopiaNo Family HistoryBlindnessNo Family HistoryCancerNo Family HistoryCataractNo Family HistoryDetached RetinaNo Family HistoryHeartNo Family HistoryMacular DegenNo Family HistoryStrabismusNo Family HistoryRelation StatusCommentsMaternal GrandmotherMother Social History Tobacco UseTypesPacks/DayYears UsedDateSmoking Tobacco: NeverSmokeless Tobacco: Never Tobacco Cessation:Counseling Given: Not Answered Alcohol UseStandard Drinks/WeekCommentsNever0 (1 standard drink = 0.6 oz pure alcohol)PHQ-2AnswerDate RecordedPHQ-2 qnqhf708rea Deprivation Index AnswerDate RecordedNational Score (1-100), lower number is lower risk97 09/25/2024State Score (1-10), lower number is lower kxvn886509/25/2024Data from: https://www.neighborhoodatlas.[facility].edu/. Last address used for apthzwdniuo[address]/25/2024CommentsUnknownSex and Gender InformationValueDate RecordedSex Assigned at UzevyBwlujk54/25/2022 11:47 AM EDT Legal IduUqpvai31/06/2021 12:44 PM EDTGender LnrnogclLzxfzi56/25/2022 11:47 AM EDTSexual UdyvjzudmjdYwawnyhz01/25/2022 11:47 AM EDT Last Filed Vital Signs Vital SignReadingTime TakenCommentsBlood Agvxtsck700/8801/08/2025 10:40 AM EDT Hhsgp007401/08/2025 10:40 AM HWOBuouwnnuzhe18.5 ??C (97.7 ??F)11/29/2024 12:51 PM EDTRespiratory Rrjk480011/29/2024 12:51 PM EDTOxygen Iuhcbnxdey29%01/08/2025 10:40 AM EDTInhaled Oxygen Concentration--Lnsorm431.8 kg (253 lb 1.4 oz)01/08/2025 10:40 AM CJLPkpshm653.2 cm (5' 7.8 )11/29/2024 12:26 PM EDTBody Mass Index38.71 11/29/2024 12:26 PM EDT Plan of Treatment Health MaintenanceDue DateLast DoneCommentsPeds To Adult Transition Initial Xhwyybfkuu35/05/2011Peds To Adult Transition Annual Wxdzthvigy66/05/2013nxiety Ajpogmluo12/05/2017Depression Efifrczoe75/05/2017HIV Cikfmyknu32/05/2017Cervical Cancer Ujkdxfxat67/05/2020Covid-19 Vaccine ( season)2025 04/14/2021, 03/27/2021Influenza Vaccine (#1)5003/04/2020, 11/14/2019, 10/11/2018, Additional history existsDTaP,Tdap,Td Vaccine (8 - Td or Tdap) , 04/08/2011, 04/14/2004, Additional history existsHepatitis B EkhzleyOpqirgmew83/03/1999, 01/28/1999, 1998HPV VaccineCompleted 05/23/2012, 07/21/2011, 04/08/2011Hepatitis C LdplsmfwkIqftpyjrd52/01/2021 Insurance Care Teams Team MemberRelationshipSpecialtyStart DateEnd Date Addison Cool DO [address] [place], [place] [id number] PCP - [facility]01/01/21 Addison Cool DO [address] [place] [id number] [facility]12/26/23
[2025-07-04 14:38] LABS: Hematocrit 38.4 % (36.0-48.0); Hemoglobin 12.7 g/dL (12.0-16.0); Immature Granulocytes Abs Auto 0.01 10^3/uL (0.00-0.03); Immature Granulocytes Pct Auto 0.2 % (0.0-0.5); Lymphocytes Absolute Auto 1.7 10^3/uL (1.2-3.8); Mean Corpuscular HGB Conc 33.1 g/dL (29.9-35.2); Mean Corpuscular Hemoglobin 26.1 pg (26.7-34.0); Mean Corpuscular Volume 79.0 fL (81.0-99.0); Platelet Count 309 10^3/uL (150-450); Red Blood Count 4.86 10^6/uL (4.20-5.40); White Blood Count 5.4 10^3/uL (4.0-11.0)
[2025-07-04 15:00] LABS: Cannabinoid Screen Urine NEGATIVE (NEGATIVE); Methamphetamines Screen Urine NEGATIVE (NEGATIVE); Tricyclic Antidepressant Urine NEGATIVE (NEGATIVE)
[2025-07-05 06:08] LABS: Rubella Antibodies, IgG 2.45 index (Immune >0.99)
[2025-07-05 13:09] LABS: Rapid Plasma Reagin, Quant Non Reactive titer (NonRea<1:1)
== END 2025-07-04 14:15 | disposition home or self-care (01) ==
LOC: LAB 14:16
PROVIDERS: PCP Family Medicine; Visit Provider Obstetrics & Gynecology
DX: Z34.01 Encounter for supervision of normal first pregnancy, first trimester (principal); N92.6 Irregular menstruation, unspecified
CPT/HCPCS: 36415; 80307; 83036; 85025; 86592; 86762; 86803; 86850; 86900; 86901; 87086; 87340; 87389